=== PATIENT | female | born 1985 | race Caucasian/White ===

== ENCOUNTER 2018-02-21 23:32 | Emergency (ER) | payer OTHER ==
[~2018-02-21] VITALS: Ht 172.7 cm; Wt 114.9 kg
[~2018-02-21 23:32] MED LIST: DOLOPHINE HCL10 MG PO; FLEXERIL10 MG PO; FOLIC ACID20 MG PO; KEFLEX500 MG PO; KEPPRA250 MG PO; LIDOCAINE20 MG/1 M5 PO; LORTAB 5-325 M1 EACH PO; METHADONE PO; METHADONE10 MG/1 M1 PO; MOTRIN; PEN-VEE K,VEET500 MG PO; PERCOCET 5/31 TABLET PO; PRENATAL TABLE1 EAC3 PO; PROAIR HFA8.5 GM IH; SKELAXIN800 MG PO; ULTRAM50 MG PO; VENTOLIN17 GM IH; VICODIN 5-3001 EACH PO; ZITHROMAX Z-PA250 MG PO; ZOFRAN; ZOFRAN ODT8 MG PO; ZOFRAN4 MG PO
[2018-02-22 01:11] LABS: BASOPHIL (%) 0.3 % (0-1); EOSINOPHIL (%) 2.6 % (0-5); EOSINOPHIL COUNT 0.3 K/uL (0-0.3); IMMATURE GRANULOCYTE (%) 0.2 % (0.0-0.7); LYMPHOCYTE (%) 48.1 % (15-42); LYMPHOCYTE COUNT 4.7 K/uL (1.0-2.8); MCH 33.5 PG (29.0-34.0); MCHC 36.1 G/DL (30.0-36.0); MCV 92.8 FL (83-99); MONOCYTE (%) 6.6 % (3-12); MONOCYTE COUNT 0.6 K/uL (0-0.8); NEUTROPHIL (%) 42.2 % (45-76); NEUTROPHIL COUNT 4.1 K/uL (1.8-6.4); PLATELET COUNT 207 K/uL (156-360); RBC DIS.WIDTH-CV 11.9 % (11.8-14.6); RBC DIS.WIDTH-SD 40.4 % (39-53); RED BLOOD COUNT 3.88 M/uL (3.80-5.20); WHITE BLOOD COUNT 9.8 K/uL (4.1-10.2)
[2018-02-22 01:23] LABS: APPEARANCE CLEAR ((CLEAR)); BILIRUBIN NEGATIVE; BLOOD NEGATIVE; COLOR YELLOW ((YELLOW)); GLUCOSE (STRIP) NEGATIVE; KETONES NEGATIVE; LEUKOCYTES TRACE; NITRITE NEGATIVE; PROTEIN (STRIP) NEGATIVE; SPECIFIC GRAVITY 1.021 (1.000-1.030); UROBILINOGEN 0.2 MG/DL (0.2-1.0)
[2018-02-22 01:23] LABS: ALBUMIN 4.1 g/dL (3.2-4.8)
[2018-02-22 01:24] LABS: CHLORIDE 107 mEq/L (99-109); POTASSIUM 4.1 mEq/L (3.7-5.4); SODIUM 139 mEq/L (136-147)
[2018-02-22 01:26] LABS: GLUCOSE 97 mg/dL (70-99); TOTAL PROTEIN 6.6 g/dL (6.4-8.3)
[2018-02-22 01:27] LABS: BACTERIA NONE SEEN /HPF; EPITHELIAL CELLS RARE /HPF; MUCUS TRACE /LPF; RED BLOOD CELLS 0-5 /HPF (0-5); UCUL ADDED? NO; WHITE BLOOD CELLS 0-5 /HPF (0-5)
[2018-02-22 01:28] LABS: TOTAL BILIRUBIN 0.4 mg/dL (0.0-1.0)
[2018-02-22 01:29] LABS: ALKALINE PHOSPHATASE 68 IU/L (3-129)
[2018-02-22 01:30] LABS: CREATININE 0.8 mg/dL (0.6-1.3); GFR ESTIMATE (CALCULATED) > 59 mL/min/
[2018-02-22 01:31] LABS: AST (GOT) 59 IU/L (2-34); UREA NITROGEN (BUN) 15 mg/dL (9-23)
[2018-02-22 01:32] LABS: ALT (GPT) 57 IU/L (3-49)
[2018-02-22 01:33] LABS: LIPASE 21 U/L (1.0-51.0)
[2018-02-22 01:39] LABS: QUANTITATIVE HCG 378.6 MIU/ML
[2018-02-22 02:49] VITALS: BP 124/69
== END 2018-02-22 02:49 | disposition home or self-care (01) ==
LOC: EME 23:32
PROVIDERS: Emergency Medicine
DX: O26.891 Other specified pregnancy related conditions, first trimester (principal); R10.2 Pelvic and perineal pain; O99.511 Diseases of the respiratory system complicating pregnancy, first trimester; J45.909 Unspecified asthma, uncomplicated; O99.341 Other mental disorders complicating pregnancy, first trimester; F31.9 Bipolar disorder, unspecified; F41.9 Anxiety disorder, unspecified; O99.331 Smoking (tobacco) complicating pregnancy, first trimester; F17.200 Nicotine dependence, unspecified, uncomplicated; Z3A.00 Weeks of gestation of pregnancy not specified; Z87.42 Personal history of other diseases of the female genital tract; Z88.5 Allergy status to narcotic agent; Z88.6 Allergy status to analgesic agent; Z88.8 Allergy status to other drugs, medicaments and biological substances
CPT/HCPCS: 76801; 80053; 81003; 83605; 83690; 84702; 85025; 87210; 87480; 87510; 87660; 99281; 99284